=== PATIENT | male | born 1985 | race Caucasian/White ===

== ENCOUNTER → 2018-07-07 15:14 | Outpatient (CLI) | payer MEDICAID, SELFPAY ==
--- NOTE | 2018-07-07 15:19 | VDLE_ITS ---
Reason For Study: RLE Pain RIGHT GSV is normal. CFV is compressible, spontaneous, phasic, competent and demonstrates normal augmentation. Acute deep vein thrombosis is noted in the right femoral vein. Acute deep vein thrombosis is noted in the right popliteal vein. Acute deep vein thrombosis is noted in the right peroneal vein. Acute deep vein thrombosis is noted in the right posterior tibial vein. Procedure Exam performed in department. A preliminary report was called and/or faxed to Dr. Peters. Interpretation Summary Acute deep vein thrombosis is noted in the right femoral vein. Acute deep vein thrombosis is noted in the right popliteal vein. Acute deep vein thrombosis is noted in the right tibio-peroneal trunk. Acute deep vein thrombosis is noted in the right peroneal vein. Acute deep vein thrombosis is noted in the right posterior tibial vein. The right common femoral vein is patent, compressible, and competent. The right greater saphenous vein appears patent and compressible segmentally. Ordering Physician: Naomi Peters Referring Physician: Montse Rosado Performed By: Latonia Varma RVT and Student
== END ==
PROVIDERS: Family Provider Nurse Practitioner Family; PCP Nurse Practitioner Family; Referring Provider Podiatrist Foot & Ankle Surgery; Visit Provider Podiatrist Foot & Ankle Surgery
DX: M79.661 Pain in right lower leg (principal)
CPT/HCPCS: 93971

== ENCOUNTER 2018-07-07 17:56 | Emergency (ER) | payer MEDICAID, SELFPAY ==
[2018-07-07 17:58] VITALS: BP 127/96; PULSE 98; RESP 18; TEMP 37.2; O2SAT 99; BMI 53.9
--- NOTE | 2018-07-07 18:50 | ED.DCSUM_ITS ---
- ER Visit Summary Date of Service: 07/07/18 Chief Complaint: Right leg DVT History of Present Illness: The patient is a [address] protein C deficiency with prior DVTs. Also treated with hypertension. Patient willingly admits that he is noncompliant with his Eliquis anticoagulation medication due to he takes NSAIDs occasionally for leg pain. On Saturday he fell and broke his right ankle. He was seen by [facility]. They order a right lower extremity ultrasound which showed a DVT thigh and several in his right calf. And he was instructed to go to the ER. He denies any chest pain or shortness of breath. Physical Examination: Well-appearing young male. Vital signs are stable afebrile. Pulse ox 9 9% on room air no signs of hypoxia. H EENT exam unremarkable. Neck nontender. Lungs clear to auscultation. Heart regular rhythm no murmur. Abdomen soft nontender. Normal bowel sounds no peritoneal signs. He is moving all 4 extremities. The right lower leg ankle is in a posterior splint. He has edema around the ankle. Neurologically is awake alert with no focal motor deficits. Test Results: None Emergency Department Course and Treatment: Patient will be started back on his Eliquis 10 mg twice daily for 1 week. And then go back to 5 mg twice daily. I did discuss this with pharmacy. This was their recommendation. I discussed this with the patient and his family. He is comfortable with that plan. Treatment Plan: Discharge to restart his Eliquis. Disposition: Discharge Impression: Acute right lower extremity DVTs History of protein C deficiency and prior blood clots Status post right ankle fracture Prior noncompliance with Eliquis This note was generated with [employer] dictation software. It may contain incorrect words, spelling, and punctuation that were not noted in review of the chart prior to signing ED Disposition - Plan for ED Patient: Chief Complaint: Other, Pain/Inj Referrals: Montse Rosado NP-C [Primary Care Provider] -
--- NOTE | 2018-07-07 18:50 | ED.DEP ---
ED Disposition - Plan for ED Patient: Disposition: Home or Assisted Living Chief Complaint: Other, Pain/Inj Instructions: ED DVT Referrals: Montse Rosado NP-C [Primary Care Provider] - As Needed Additional Instructions: Restart your Eliquis. 10 mg twice a day for the next 7 days. Then go back to your normal dose of 5 mg twice a day. Make sure that you continue taking your Eliquis.
== END 2018-07-07 18:57 | disposition home or self-care (01) ==
PROVIDERS: Emergency Provider Emergency Medicine; Family Provider Nurse Practitioner Family; PCP Nurse Practitioner Family
DX: I82.4Z1 Acute embolism and thrombosis of unspecified deep veins of right distal lower extremity (principal); I82.4Y1 Acute embolism and thrombosis of unspecified deep veins of right proximal lower extremity; D68.59 Other primary thrombophilia; S82.891A Other fracture of right lower leg, initial encounter for closed fracture; W19.XXXA Unspecified fall, initial encounter; Y93.9 Activity, unspecified; Y92.9 Unspecified place or not applicable; Z91.14 Patient's other noncompliance with medication regimen; I10 Essential (primary) hypertension; Z86.718 Personal history of other venous thrombosis and embolism; Z79.01 Long term (current) use of anticoagulants; Z79.899 Other long term (current) drug therapy
CPT/HCPCS: 99282

== ENCOUNTER → 2018-09-19 15:02 | Outpatient (CLI) | payer MEDICAID, SELFPAY ==
--- NOTE | 2018-09-19 15:08 | VDLE_ITS ---
Reason For Study: F/U DVT RIGHT LEFT GSV is normal. CFV is compressible, spontaneous, phasic, CFV is compressible, spontaneous, phasic, competent, and demonstrates normal competent and demonstrates normal augmentation. augmentation. FV is partially compressible with bright intraluminal echoes consistant with chronic clot POP V, T/P trunk, Gastrocs and PTV are dilated and non-compressible consistant with acute thrombosis PER V is compressible. Procedure Exam performed in department. A preliminary report was called and/or faxed to Dr. Peters. Interpretation Summary Acute deep vein thrombosis is noted in the right popliteal vein. Acute deep vein thrombosis is noted in the right tibio-peroneal trunk. Acute deep vein thrombosis is noted in the right posterior tibial vein. Acute deep vein thrombosis is noted in the right gastrocnemius vein. Chronic venous changes are noted in the right femoral vein. The right common femoral vein and peroneal vein are patent and compressible. The right greater saphenous vein appears patent and compressible segmentally. Ordering Physician: Naomi Peters Referring Physician: Jaylen Myers Performed By: Latonia Varma RVT
== END ==
PROVIDERS: Family Provider Nurse Practitioner Family; PCP Nurse Practitioner Family; Referring Provider Podiatrist Foot & Ankle Surgery; Visit Provider Podiatrist Foot & Ankle Surgery
DX: Z86.718 Personal history of other venous thrombosis and embolism (principal)
CPT/HCPCS: 93971